=== PATIENT | male | born 1950 | race African-American/Black ===

== ENCOUNTER 2021-08-05 08:24 | Day surgery (SDC) | payer MEDICARE, BC ==
[~2021-08-05] VITALS: Ht 170.2 cm; Wt 68.9 kg
[~2021-08-05 08:24] MED LIST: AMLODIPINE2.5 MG PO; ASPIRIN EC81 MG PO; ATENOLOL50 MG PO; B6 FOLIC ACD PO; BENADRYL 50MG C50 MG PO; CLONIDINE0.1 MG PO; COCONUT OIL; CRESTOR5 MG PO; D32000 UNI1 PO; DEPO-MEDROL80 MG/ML IM; FE TABS325 MG PO; LOVASTATIN10 M1 PO; MULTI VITAMIN1 TAB PO; NORVASC5 M1 PO; OMEGA 31000 MG PO; RANITIDINE150 M1 PO; TENORMIN25 MG PO; TENORMIN50 MG PO; VITAMIN B121000 MCG PO; ZINC50 M1 PO
[2021-08-05 12:31] VITALS: BP 118/61
== END 2021-08-05 12:40 | disposition home or self-care (01) ==
LOC: ENDO 08:24
PROVIDERS: ATTEND Surgery
PROC: 0DJD8ZZ Inspection of Lower Intestinal Tract, Via Natural or Artificial Opening Endoscopic (ICD-10-PCS; principal; 2021-08-05)
DX: Z12.11 Encounter for screening for malignant neoplasm of colon (principal); K56.2 Volvulus; I10 Essential (primary) hypertension